=== PATIENT | female | born 1995 | race Hispanic/Latino ===

== ENCOUNTER → 2017-12-07 | Outpatient (CLI) | payer OTHER ==
--- NOTE | 2017-12-07 11:41 | Diagnostic Imaging Report ---
PROCEDURE:ANKLE 3+ VIEWS LEFT TECHNIQUE:AP, lateral views left ankle INDICATION:Left ankle pain status post fall COMPARISON:None. FINDINGS: The left ankle image regional skeleton are intact and in anatomic alignment. Joint spaces are maintained. Regional soft tissues are normal. No foreign bodies. CONCLUSION: No evidence of acute traumatic injury. Dictated by: Shaggy Gross M.D. on 12/07/2017 at 11:42 Electronically approved by: Shaggy Gross M.D. on 12/07/2017 at 11:42
== END ==
LOC: RAD 10:45
PROVIDERS: ATTEND Family Medicine
DX: M25.572 Pain in left ankle and joints of left foot (principal); S93.402A Sprain of unspecified ligament of left ankle, initial encounter